=== PATIENT | male | born 1935 | race Caucasian/White ===

== ENCOUNTER → 2019-12-02 | Outpatient (CLI) | payer MEDICARE | END | disposition home or self-care (01) | LOC: CVU 09:31 → EDSTATUS 10:00 | PROVIDERS: ATTEND Internal Medicine Cardiovascular Disease | DX: I08.0 Rheumatic disorders of both mitral and aortic valves (principal); Z95.5 Presence of coronary angioplasty implant and graft | CPT/HCPCS: 93306 ==